=== PATIENT | female | born 1990 | race Caucasian/White ===

== ENCOUNTER 2025-07-19 08:46 | Outpatient (CLI) | payer OTHER, SELFPAY ==
[2025-08-07 14:30] VITALS: BMI 39.1
--- NOTE | 2025-08-07 14:30 | P.SLEEP_ITS ---
Sleep Study - Home Unattended Date of Study: 07/19/25 Ordering Provider: Susana Seay, PA Interpreting Provider: Emily Mcgowan, DO Home Sleep Study Type: Watch PAT Height: 1.75 m Weight: 120.202 kg Body Mass Index: 39.1 Neck Circumference (inches): 16 [place]: 16 Reason for Sleep Study Excessive daytime sleepiness Sleep History The patient is a 34-year-old female that had a sleep study ordered by her [facility] for evaluation of sleep apnea. The patient admits to excessive daytime sleepiness and trouble staying asleep. She denies snoring loudly. She denies having interruptions in breathing while asleep. She denies choking or gasping at night. She denies having trouble breathing on her back. She does have morning headaches. She does have a dry or sore mouth/ throat in the morning. She denies nocturnal heartburn. She denies nocturia. She does have difficulty falling and staying asleep. She does have difficulty returning to sleep if she wakes up throughout the night. She denies any hypnotic or sedative use. She does feel anxious about sleep. He does feel tired or sleepy during the day. She does feel tired in the morning. She does have the urge to fall asleep during the day. She does feel drowsy while driving. She admits to having muscle weakness. She denies sleep paralysis and hypnagogic/ hypnopompic hallucinations. She does dreams during daytime naps. She does clench or grind her teeth. She denies kicking or jerking her legs excessively. She denies having a restless feeling in her legs. She goes to bed at 10:00 p.m. on work days and at 1:00 a.m. on her days off. It takes her 2 hours to fall asleep on work days and 1 hour on her days off. She gets 6 hours of sleep per night. Her sleep is somewhat restorative on her days off. She does take a planned naps in the afternoon lasting 1-2 hours and is restorative. She denies dream enactment behavior. She denies sleep walking. She consumes more than 5 caffeinated beverages per day. She denies tobacco and alcohol use. She exercises 1-2 nights per week. Sleep Procedure The sleep study was completed using [employer] a technically adequate device with seven channels: peripheral arterial tone, actigraphy, body position, snore, respiratory movement, pulse oximetry, sleep staging, and heart rate. Prior to using the device, the patient received verbal and written instructions for its application and was provided with the help desk phone number for additional telephonic instruction with 24-hour availability of qualified personnel to answer questions. The study was scored using CMS guidelines. Sleep Architecture The total recording time is 8 hrs, 41 min. The total sleep time is 5 hrs, 43 min . Sleep latency is 56 minutes. REM latency is 32 minutes. The patient had 18 episodes of waking. Sleep architecture shows 22.9% deep sleep, 54.3% light sleep, and (as % Total Sleep Time) showed NREM (Light 54.3%; Deep 22.9%), and a 22.9% stage REM. The patient spent 58.2% of total sleep time in the supine position. Sleep efficiency was 65.83. Respiratory Analysis The overall AHI (pAHI 4%:) is 5.4. The overall AHI (pAHI 3%:) is 8.2. The central AHI is 0.9. The AHI was 9.1 in NREM and 5.4 in REM sleep. The AHI was 5.4 in Supine and 12.2 in Non-supine sleep. Percent of Lukas Capellan respirations is 0.0. Oximetry Data The oxygen desaturation index (GORDY 4%:) is 3.5. The mean saturation is 94%, and the lowest saturation is 90%. Time spent with saturation < 88% is 0.0 minutes. Snoring Profile Snoring average intensity is 46 dB. The patient snored above 45 decibels for 138.6 minutes, 40.3% of sleep time. Cardiac Profile The average pulse rate is 68 beats per minutes. The lowest pulse rate is 50 bpm. The highest pulse rate reported is 95 bpm. Atrial fibrillation was not detected. Premature beats occur <0.1 per minute. Assessment and Plan Assessment and Plan (1) VERONICA (obstructive sleep apnea): Code(s): G47.33 - Obstructive sleep apnea (adult) (pediatric) Status: Acute Assessment and Plan: The patient had an overall AHI of 5.4 with desaturation down to 90%. This is consistent with mild sleep apnea. Due to the severity of the patient's daytime hypersomnia (ESS of 15/24), she qualifies for treatment. I recommend that the patient be prescribed AutoPAP 5-15 cm H2O, CPAP mask/filters/tubing and heated humidity. A mandibular advancement device is also an acceptable treatment option. This should be used with all episodes of sleep.? Compliance should be reviewed within 31-90 days of starting therapy for usage greater than 4 hours per night greater than 70% of the nights. The patient should be asked about symptoms such as?excessive daytime sleepiness, quality of sleep, decreased nocturia, increased?mental functioning such as memory, mood, and concentration. Data The data obtained during this sleep study is adequate for interpretation. Certification This sleep study has been reviewed by a board certified sleep medicine physician.
== END 2025-07-20 13:47 | disposition home or self-care (01) ==
PROVIDERS: PCP Family Medicine; Visit Provider Physician Assistant
DX: G47.33 Obstructive sleep apnea (adult) (pediatric) (principal)
CPT/HCPCS: 95800

== ENCOUNTER 2025-07-24 10:14 | Outpatient (CLI) | payer OTHER, SELFPAY ==
--- OUTSIDE RECORDS SUMMARY | 2025-07-24 11:57 | XMS_ITS | Clinical Summary ---
Author Organization [place] [id number] [facility] Address [facility] [place] [address] Care Team Providers Care Production Control Coordinator Name Role Phone Luke Hayes MD Primary Care Provider [phone] Judi Walker ACTIVATED SLUDGE ATTENDANT Unavailable [phone] Allergies Active Allergy Reactions Criticality Noted Date Comments Cephalosporins Hives,Other (See comments),Unknown High 03/07/2010 REACTION UNKNOWN Nuts Itching,Other (See comments),Shortness of breath,Anaphylaxis,Hives High 02/09/2019 REACTION UNKNOWN Medications busPIRone (BUSPAR) 15 mg tablet Take 2 tablets (30 mg total) by mouth 2 (two) times a day 022 Active Advair Diskus 250-50 mcg/dose diskus inhaler Inhale 1 puff 2 (two) times a day 022 Active sertraline (ZOLOFT) 100 mg tablet Take 2 tablets (200 mg total) by mouth daily 022 Active cetirizine 10 mg capsule Take 10 mg by mouth daily Active LORazepam (ATIVAN) 0.5 mg tablet Take 1 tablet (0.5 mg total) by mouth as needed 022 Active folic acid (FOLVITE) 800 mcg tablet Take 0.5 tablets (400 mcg total) by mouth daily Active fluticasone propionate (FLONASE) 50 mcg/actuation nasal spray 025 Active rizatriptan ELEVATOR CONDUCTOR (MAXALT-ELEVATOR CONDUCTOR) 5 mg disintegrating tabletIndications :Migraine Take 1 tablet (5 mg total) by mouth once as needed for migraine May repeat in 2 hours if unresolved. Do not exceed 30 mg in 24 hours. 9 tablet 025 2025 Active Ajovy Syringe 225 mg/1.5 mL syringe subcutaneous injection INJECT 225 MG (1 ML) SUBCUTANEOUSLY ONCE MONTHLY 1.5 mL 5 Active Ajovy Syringe 225 mg/1.5 mL syringe subcutaneous injection INJECT 225 MG (1 ML) SUBCUTANEOUSLY ONCE MONTHLY 1.5 mL 5 025 2024 Discontinued Hospital, Clinic, or Other Facility Administered Medication Ordered Dose Route Frequency Start Date End Date Status onabotulinumtoxin A (BOTOX) 200 unit injection 200 UnitsIndications:Intr actable chronic migraine without aura and without status migrainosus 200 Units OTHER Once for Clinic-Administere d Medication 06/20/2025 Active Active Problems Problem Noted Date Diagnosed Date Chronic migraine with aura w ithout status migrainosus, not intractable 06/02/2024 Migraine without aura and wi thout status migrainosus, not intractable 12/03/2023 Antiphospholipid antibody positive 01/21/2023 Overview (01/21/2023): Diagnosis Laboratory criteria: lupus anticoagulant present in plasma on 2 occasions at least 12 weeks apart Clinical criteria: one or more clinical episodes of arterial, venous, or small vessel thrombosis in any tissue/organ and one or more unexplained deaths of a morphologically normal fetus at or beyond he 10th week of gestation, with normal morphology documented by ultrasound or by direct examination of the fetus Counseling Discussed with patient that antiphospholipid syndrome is an autoimmune disorder defined by the presence of characteristic clinical features and specified levels of circulating proteins called antiphospholipid antibodies and that diagnosis requires at least one clinical and laboratory finding. Antiphospholipid antibodies have been associated with a variety of medical problems including arterial thrombosis and venous thrombosis (with risk significantly increased during or in the period-~5-12%), autoimmune thrombosis and loss. In addition to loss, several obstetric complications have been associated with antiphospholipid antibodies, including preeclampsia (5-8x increased risk), intrauterine growth restriction (15-30% in most case series), placental insufficiency and delivery. Recommendations We recommend low-dose aspirin starting at 12 weeks for preeclampsia prophylaxis and possible protective benefit against loss We recommend Deirdre begin Lovenox shortly after conception. She will call our office when she achieves to begin Lovenox. We do not recommend use of IVIG or prednisone used solely for the treatment of APS. The patient should not use estrogen-containing contraceptives, but progesterone- only forms of contraception are appropriate. We recommend delivery at 39 weeks gestation Plan [] ASA starting at 12 weeks [] Lovenox when she has a positive test [] Serial growth scans starting at 28 weeks [] testing starting at 28 weeks [] Delivery at 39 weeks History of cerebral venous sinus thrombosis 12/30 Overview (01/21/2023): Occurred in 2008, thought to be 2/2 OCPs. She has no residual deficits. 2009: had cerebral angiogram: surgeons were unable to clear clots endovascularly. Was on Lovenox and Warfarin for a year. Last saw heme 10/2022: had thrombophlia testing with +lupus anticoagulant x2 (07/2022, 05/2022). No recommendations for anticoagulation outside of but given clot history and APLS, for prophylactic Lovenox in . Please see APLS problem for further details. Asthma 01/21/2023 Overview (01/21/2023): - Severity classification: moderate persistent - Current regimen: Advair BID, Albuterol Discussed that this regimen is safe. Discussed that some asthma Improves and some worsens in . Discussed availability of step-up therapy if needed. Miscarriage 01/21/2023 Overview (01/21/2023): Deirdre has a history of 2 miscarriages in the last year, one at 6 weeks and one at 11 weeks. We discussed that this may be due to APLS. Please see this problem for plan. Depression 01/21/2023 Overview (01/21/2023): We reviewed depression/anxiety and SSRI/SNRI use in . Generally, the risk of worsening depression or anxiety in is dependent on control prior to . Maternal depression has been associated with increased risk of and IUGR/SGA in some studies.Thus, regular follow-up with a mental health provider is recommended throughout her and . The risks of SSRI exposure have been explored by multiple studies, but the results from these studies are conflicting and limited by confounders. We discussed the weak association between SSRIs and defects and the possibility of deferring treatment in the first trimester. We also discussed a potential association between maternal use of SSRIs in late and the risk of persistent pulmonary hypertension of the (PPHN). We reviewed how studies indicated that there may be a small increase in the risk of PPHN among those who use SSRIs in late , however about 99% of women exposed to one of these medications in late will deliver an unaffected by PPHN. We reviewed the risk of abstinence syndrome but emphasized that this syndrome can be easily managed by the pediatricians, and no truck terminal manager effects have ever been demonstrated. We discussed that the absolute risks of continuing SSRIs in are small but present and need to be weighed against the potential maternal benefits. Availability of alternative treatment like psychotherapy should also be taken into consideration. We discussed the management of anxiety/depression during , with an emphasis on optimizing maternal well being as untreated anxiety/depression can have devastating consequences. Zoloft and Buspar, in general, has not been shown to increase risk of teratogenicity, stillbirth/ mortality, or major congenital anomalies. We reviewed that worsening of depression does sometimes occur during , or in the period, and in rare cases can lead to psychosis and/or suicide ideation. Deirdre rarely takes Ativan: we discussed minimizing or removing this exposure in . Encounter for preconception consultation 023 Overview (01/21/2023): Discussed general preconception counseling with the patient. We reviewed all chronic medical conditions (please see individual problems for specific counseling) as well as medications, indications for her medications as well as their safety profile in . We discussed the patient's family history and offered carrier screening. We discussed the importance of folic acid supplementation. We also discussed immunization status and discussed current recommendations for influenza and COVID vaccination in . Plan [x] carrier screening: declines [] folic acid supplementation: will take. Cannot take PNV due to Vitamin A with her IIH. [x] COVID vaccination Multiple thyroid nodules 01/19/2023 Overview (01/21/2023): Had two nodules biopsied recently: they are benign and being monitored. Saw endocrinology on January 19, 2023: recommend repeat ultrasound of thyroid in 1 year Assessment & Plan (01/19/2023 11:36 AM CDT): Benign cytology Plan follow up US in one year Obtain TFT Class 2 obesity due to exces s calories with body mass index (BMI) of 39.0 to 39.9 in adult 01/19/2023 Assessment & Plan (01/21/2023 4:11 PM CDT): BMI: 40 Counseling Women with obesity are at increased risks of spontaneous , stillbirth, macrosomia and congenital anomalies. During the antepartum period they are at increased risk of cardiac dysfunction, proteinuria, sleep apnea, GDM, and preeclampsia. During labor, women with obesity are at a higher risk for delivery, failed trial of labor, endometritis, wound complications, and venous thrombosis. We recommended healthy diet and exercise to Deirdre in this preconception period to optimize the health of the . Would recommend early glucose screening, specialized anatomy ultrasound with serial growth assessment, and testing. Plan when is achieved: [] Early GTT [] Specialized anatomy ultrasound [] Anesthesia consult in third trimester [] surveillance recommendations per APLS Assessment & Plan (01/19/2023 11:37 AM CDT): Patient on Topamax for migraine Discussed diet and exercise Discussed medical therapy for weight loss Will refer to weight management clinic Dermatitis due to ingested food 03/07/2010 IIH (idiopathic intracranial hypertension) 05/01 Overview (01/21/2023): History: Diagnosed around 2010 with lumbar puncture. Doing well until early 2021 when she had worsening headaches and pulsatile tinnitus. Had headache again in 05/2022 with daily vision blurring and had high opening pressure of 36. Neurology team was considering a shunt. Most recently saw neuro optho 08/2022 at [facility] with normal neurooptho exam. Continue current regimen, no plan for surgery Counseling: Idiopathic Intracranial Hypertension (IIH) formerly known as pseudotumor cerebri is a disease that is more common in women and obese patients. Symptoms include headache, visual disturbances, and papilledema, neck/back pain, tinnitus and cranial nerve palsies. This is typically caused by increased intracranial pressure which is thought to be secondary to either an increase in cerebrospinal fluid production or lack of reabsorption. If symptoms develop in , they most commonly develop in the 1st trimester or . If left untreated, permanent vision loss is a risk but the disease is usually self-limited. Treatment options include acetazolamide, high dose steroids, furosemide, torsemide, topiramate, repeated lumbar punctures, shunting procedures, or optic nerve fenestration. Acetazolamide is first-line in non patients and has been safely used in - no risk of miscarriage or teratogenic outcomes have been reported. IIH symptoms tend to improve after delivery. There are no specific risks to a from IIH itself and no obstetric complications maternal or have been reported. Current regimen:Diamox 500mg BID, Topamax 100mg qHS. Acute treatments: Idomethacin and Esgic (fiorcet) Discussed Topamax as a potentially teratogenic medication associated with cleft lip. We discussed that the risks and benefits of Topamax in for symptom control must be weighed. Her symptoms have been improving and she desires to see neurology about potentially down titrating and removing Topamax before . Discussed recommendation to avoid indomethacin in . Plan: [] Monitor symptoms [] Ensure follow up with neurology and neuro-ophthalmology Encounters Date Type Department Care Team Description 04/24/2025 Orders Only [facility] Medicine General Neurology [address] [place] [address] Trish London Intractable chronic migraine without aura and without status migrainosus (Primary Dx) from Last 3 Months Immunizations Immunization Administration Dates Next Due DTP 02/23/1995, 1,04/02/1990,02/19,1989 Hep B, Adolescent or Pediatric 11/14/1999,1998,05/16/1999 HiB 08/09/1993,09/11/1990,07/13/1990 Influenza, Quadrivalent, Spl it, Intramuscular 07/11/2019,06/14/2018 Influenza, Quadrivalent, Spl it, Preservative Free, Intramuscular 07/01/2021,06/04/2020,08/01/2016 Influenza, Trivalent, IM (MDV) 06/11/2017 MMR 02/23/1995,02/25/1991 OPV 02/23/1995, 1,02/19/1990,12/19 OPV, Unspecified 02/23/1995, 1,02/19/1990,12/19 Pneumococcal Polysaccharide PPV23 07/12/2018 Surgical History Surgery Date Site/Laterality Comments APPENDECTOMY 08/31/2005 - 08/30/2006 CHOLECYSTECTOMY 08/31/2016 - 08/30/2017 WISDOM TOOTH EXTRACTION LUMBAR PUNCTURE WO INJECTION , DIAGNOSTIC 05/22/2022 N/A LUMBAR PUNCTURE WO INJECTION , DIAGNOSTIC 01/08/2022 N/A Medical History Medical History Date Comments Anxiety Asthma Bleeding disorder Depression Gastric reflux IIH (idiopathic intracranial hypertension) Antiphospholipid antibody positive Family History Medical History Relation Name Comments Heart disease Father Hypertension Father Heart disease Mother Hypertension Mother Heart disease Paternal Grandfather Hypertension Paternal Grandfather Heart disease Paternal Grandmother Hypertension Paternal Grandmother Stroke Paternal Grandmother Relation Name Status Comments Father Mother Paternal Grandfather Paternal Grandmother Social History Tobacco Use Types Packs/Day Years Used Date Smoking Tobacco: Former Cigarettes 0.3 3 2 013 - 2015 Smokeless Tobacco: Never AUDIT-C Answer Date Recorded Q1: How often do you have a drink containing alc ohol? Never 07/21/2024 Average Number of Drinks Not on file 024 Frequency of Binge Drinking Not on file 07/02 Comments No Sex and Gender Information Value Date Recorded Sex Assigned at Not on file Legal Sex Female 12:36 PM CDT Gender Identity Female 06/23/2022 9:38 AM CDT Sexual Orientation Not on file Occupation Industry Job Start Date Job End Date Currently employed Not on file Not on file Not on fi le Obstetrics History Para Term AB IAB SAB Ectopic Multiple Livin g Live Births 3 1 1 2 1 Date Outcome GA Total Labor Labor/2nd/3rd Weight Sex Type Anes PTL Rozina A1 A5 Name Clin Term AB 5w0d AB 11w0d Last Filed Vital Signs Vital Sign Reading Time Taken Comments Blood Pressure 129/84 06/02/2024 9:55 AM CDT Pulse 87 06/02/2024 9:55 AM CDT Temperature 36.7 C (98 F) 06/02/2024 9:55 AM CDT Respiratory Rate 18 09/19/2022 10:16 AM SOLE PAINTER Oxygen Saturation 98% 06/02/2024 9:55 AM CDT Inhaled Oxygen Concentration - - Weight 118.4 kg (261 lb) 06/02/2024 9:55 AM CDT Height 175.3 cm (5' 9) 06/02/2024 9:55 AM CDT Body Mass Index 38.54 06/02/2024 9:55 AM CDT Plan of Treatment Health Maintenance Due Date Last Done Comments Depression Screening 1989 Hepatitis C Screening 1989 DTaP/Tdap/Td Vaccine (6 - Tdap) 2000 02/23/1995, 06/17/1991, 04/02/1990, Additional history exists Varicella Vaccines (1 of 2 - 13+ 2-dose series) 2002 HPV Vaccines (1 - 3-dose SCD M series) 2016 Pneumococcal vaccine <65 (2 of 2 - PCV) 07/12/2019 07/12/2018 Cervical Cancer Screening 01/20/2024 01/19/2023 Regular Well Visit/Exam 18-64 01/20/2024 01/19/2023 Covid-19 Vaccine (4 - 2024-2 6 season) 2025 08/05/2021, 11/30/2020, 11/02/2020 Influenza Vaccine (#1) 2025 , 06/27/2022, 07/01/2021, Additional history exists Hepatitis B Screening Completed 11/14/1999 , 07/16/1999, 05/16/1999 Procedures Procedure Name Priority Date/Time Associated Diagnosis Comments PAP AND HIGH RISK HPV, REFLEX TO GENOTYPING Routine 01/19/2023 2:54 PM CDT Well woman exam from Last 3 Months or Most Recently Relevant to Health Maintenance Results * Pap and High Risk HPV, reflex to Genotyping (01/19/2023 2:54 PM CDT) CLINICAL INFORMATION: None given [facility] LMP 01/14/23 [facility] Previous Pap ? NORMAL AT OFFICE IN [facility] Prev. Bx NONE GIVEN [facility] SOURCE: Cervix, Endocervix [facility] Pap, specimen adequacy Specimen processed and examined, but unsatisfactory for evaluation due to an insufficient number of squamous cells. [facility] HPV interp Unable to provide interpretation due to unsatisfactory specimen adequacy. [facility] COMMENTS BLOOD PRESENT [facility] Utility Accounts Director PCM, CT(ASCP) CT Screening Location: [place] [address] Administration MICHAEL [place]gado [id number] [facility] Review placement interviewer ABC, CT(ASCP) CT screening location: [place] [address] Administration MICHAEL [place] [address] [facility] Comment [facility] Comment: EXPLANATORY NOTE: The Pap is a screening test for cervical cancer. It is not a diagnostic test and is subject to false negative and false positive results. It is most reliable when a satisfactory sample, regularly obtained, is submitted with relevant clinical findings and history, and when the Pap result is evaluated along with historic and current clinical information. Human papillomavirus DNA, High Risk E6/E7 Not Detected NOT DETECTED [facility] /Tracie wang [place] Comment: Not Detected High Risk HPV types (16,18,31,33,35,39,45,51,52, 56,58,59,66,68) were not detected. Other HPV types which cause anogenital lesions may be present. The significance of the other types of HPV in malignant processes has not been established. Methodology: Real Time PCR Thin prep 01/19/2023 2:54 PM CDT 01/20/2023 12:55 AM CDT Tracey Flanagan NP LAB CYTOLOGY ORDERABLES Fi nal Result [place] [address] Administration MICHAEL Jeter [phone] [facility] [place]ino/[place] [address] [place] [address] from Last 3 Months or Most Recently Relevant to Health Maintenance Insurance [employer] PRF PPO IN [facility] Care Teams Production Control Coordinator Relationship Specialty Start Date End Date Luke Hayes MD [address] [place] [address] PCP - General Family Medicine 06/17/22 Judi Walker NP [address] [place] [address] Nurse Practitioner 06/18/22
[2025-07-26 13:09] LABS: Saccharomyces cerevisiae, IgA 41.2 Units (0.0-24.9); Saccharomyces cerevisiae, IgG 38.1 Units (0.0-24.9)
== END 2025-07-24 10:15 | disposition home or self-care (01) ==
LOC: CHSLAB 10:18
PROVIDERS: PCP Family Medicine; Visit Provider Physician Assistant
DX: R19.8 Other specified symptoms and signs involving the digestive system and abdomen (principal)
CPT/HCPCS: 86037; 86671

== ENCOUNTER 2025-08-02 14:31 | Outpatient (CLI) | payer OTHER, SELFPAY ==
[2025-08-02 15:48] LABS: HIV 1 P24 AG Negative (Negative); HIV 1/2 AB Negative (Negative)
--- OUTSIDE RECORDS SUMMARY | 2025-08-02 15:56 | XMS_ITS | Encounter Summary ---
Author Organization [facility] Address [address] [place] [address] Care Team Providers Care Wood Pole Treater Name Role Phone Luke Hayes MD Primary Care Provider [phone] Encounter Details Date Type Department Care Team (Latest Contact Info) Description 07/08/2022 [employer] Message Enc [facility] [address] [address] Judi Walker, JUNIOR RECRUITER [address] [address] Prednisone Topamax update Social History Tobacco Use Types Packs/Day Years Used Date Smoking Tobacco: Former Smokeless Tobacco: Never Comments:patient is no longe r smoking Alcohol Use Standard Drinks/Week Comments Not Currently 0 (1 standard drink = 0.6 oz pur e alcohol) PHQ-2 Answer Date Recorded PHQ-2 Score - If the patient scores above 3, please move on to questions 3-9 2 07/01/2022 Comments No Sex and Gender Information Value Date Recorded Sex Assigned at Female 07/24/2025 9:22 AM TAX SPECIALIST Legal Sex Female 5:46 PM TAX SPECIALIST Gender Identity Not on file Sexual Orientation Not on file documented as of this encounter Plan of Treatment Not on file documented as of this encounter Visit Diagnoses Not on filedocumented in this encounter Care Teams Wood Pole Treater Relationship Specialty Start Date End Date Luke Hayes MD [address] [place] [address] PCP - General FAMILY PRACTICE 01/15/19 documented as of this encounter
--- OUTSIDE RECORDS SUMMARY | 2025-08-02 15:56 | XMS_ITS | Encounter Summary ---
Author Organization [facility] Address [facility] [place] [address] Care Team Providers Care Receptionist Doctor'S Office Name Role Phone Luke Hayes MD Primary Care Provider [phone] Encounter Details Date Type Department Care Team (Late st Contact Info) Description 10/17/2024 Lang[facility] Patient Accounts [address] [place] [address] [facility] Payment plan - auto pay Social History Tobacco Use Types Packs/Day Years Used Date Smoking Tobacco: Former Smokeless Tobacco: Never Comments:patient is no longe r smoking Alcohol Use Standard Drinks/Week Comments Not Currently 0 (1 standard drink = 0.6 oz pur e alcohol) PHQ-2 Answer Date Recorded Patient Health Questionnaire-2 Score 0 08/11/2022 Comments No Sex and Gender Information Value Date Recorded Sex Assigned at Female 07/24/2025 9:22 AM INSTRUCTIONAL SUPERVISOR Legal Sex Female 5:46 PM INSTRUCTIONAL SUPERVISOR Gender Identity Not on file Sexual Orientation Not on file documented as of this encounter Plan of Treatment Not on file documented as of this encounter Visit Diagnoses Not on filedocumented in this encounter Care Teams Receptionist Doctor'S Office Relationship Specialty Start Date End Date Luke Hayes MD [address] [place] [phone] PCP - General FAMILY PRACTICE 01/15/19 documented as of this encounter
--- OUTSIDE RECORDS SUMMARY | 2025-08-02 15:56 | XMS_ITS | Encounter Summary ---
Author Organization [facility] Address [address] [place] [address] Care Team Providers Care Supplier Specialist Name Role Phone Luke Hayes MD Primary Care Provider [phone] Encounter Details Date Type Department Care Team (Late st Contact Info) Description 01/06/2022 Pre-Procedure Call [facility] Interventional Radiology [address] [place], [place] [id number] Caron Mack RN Social History Tobacco Use Types Packs/Day Years Used Date Smoking Tobacco: Former Smokeless Tobacco: Never Alcohol Use Standard Drinks/Week Comments Not Currently 0 (1 standard drink = 0.6 oz pur e alcohol) Comments No Sex and Gender Information Value Date Recorded Sex Assigned at Female 07/24/2025 9:22 AM WHITE WASHER Legal Sex Female 5:46 PM WHITE WASHER Gender Identity Not on file Sexual Orientation Not on file COVID-19 Exposure Response Date Recorded In the last 10 days, have yo u been in contact with someone who was confirmed or suspected to have Coronavirus/COVID-19? No / Unsure 01/08/2022 7:36 AM CDT documented as of this encounter Plan of Treatment Not on file documented as of this encounter Visit Diagnoses Not on filedocumented in this encounter Care Teams Supplier Specialist Relationship Specialty [place] [address] [place], [place] [address] [id number] PCP - General FAMILY PRACTICE 01/15/19 documented as of this encounter
--- OUTSIDE RECORDS SUMMARY | 2025-08-02 15:56 | XMS_ITS | Clinical Summary ---
Author Organization [facility] Address [address] [place] [address] Care Team Providers Care Community Education Coordinator Name Role Phone Luke Hayes MD Primary Care Provider [phone] Allergies Active Allergy Reactions Criticality Noted Date Comments Acetazolamide Other (see comment) 03/28/2022 Can only use extended release. Otherwise numbness and tingling in limbs Cefprozil Hives,Unknown High 03/07/2010 Cephalosporins Other (see comment) 02/09/2019 REACTION UNKNOWN Gluten Meal Unknown 03/07/2010 Nuts Anaphylaxis,Hives High 02/09/2019 Venlafaxine Rash Low 06/03/2024 Medications ADVAIR DISKUS 250-50 MCG/DOSE inhaler 0 Active EPINEPHrine 0.3 MG/0.3ML injection Inject 0.3 mLs (0.3 mg total) into the muscle as needed for Anaphylaxis. 1 each 0 Active sertraline 100 MG tablet 2 tablets (200 mg total) daily. 2 Active busPIRone (BUSPAR) 15 MG tablet 2 (two) times daily. 2 Active butalbital-aceta minophen-caffein e (ESGIC) 50-325-40 MG tabletIndication s:IIH (idiopathic intracranial hypertension) Take 1 tablet by mouth every 4 (four) hours as needed for Pain. 30 tablet 5 2 Active LORazepam (ATIVAN) 0.5 MG tabletIndication s:Anxiety about health Take 1 tablet prior to the procedure and may repeat after 30 minutes if needed for anxiety. Do not drive while taking this medication. 10 tablet 2 Active indomethacin (INDOCIN) 25 MG capsuleIndicatio ns:IIH (idiopathic intracranial hypertension) Take 1 capsule (25 mg total) by mouth 3 (three) times daily as needed. 90 capsule 11 2 Active topiramate (TOPAMAX) 100 MG tabletIndication s:IIH (idiopathic intracranial hypertension) Take 1 tablet (100 mg total) by mouth nightly at bedtime. 30 tablet 11 2 Active Additional Information Patient taking differently: 50 mgOral Nightly at bedtime, Reported on 06/03/2024 Active Problems Problem Noted Date Diagnosed Date Dermatitis due to ingested food 03/07/2010 Pseudotumor cerebri 05/01/2009 Encounters Date Type Department Care Team Description 07/24/2025 Travel from Last 3 Months Immunizations Immunization Administration Dates Next Due Dtp 02/23/1995,06/17/1991,04/02/1990 ,02/19/1990,1989 MMR 02/23/1995,02/25/1991 Opv 02/23/1995,06/17/1991,02/19/1990 ,1989 Family History Medical History Relation Comments No Known Problems Brother Heart Disease Father Hyperlipidemia Father No Known Problems Maternal Aunt No Known Problems Maternal Grandfather No Known Problems Maternal Grandmother No Known Problems Maternal Uncle Heart Disease Mother Hyperlipidemia Mother Thyroid Disease Mother No Known Problems Other No Known Problems Paternal Aunt No Known Problems Paternal Grandfather No Known Problems Paternal Grandmother No Known Problems Paternal Uncle No Known Problems Sister Relation Status Comments Brother Father Maternal Aunt Maternal Grandfather Maternal Grandmother Maternal Uncle Mother Other Paternal Aunt Paternal Grandfather Paternal Grandmother Paternal Uncle Sister Social History Tobacco Use Types Packs/Day Years Used Date Smoking Tobacco: Former Smokeless Tobacco: Never Tobacco Cessation:Counseling Given: No Comments:patient is no longer smoking Alcohol Use Standard Drinks/Week Comments Not Currently 0 (1 standard drink = 0.6 oz pur e alcohol) PHQ-2 Answer Date Recorded Patient Health Questionnaire-2 Score 0 08/11/2022 Comments No Sex and Gender Information Value Date Recorded Sex Assigned at Female 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 Gender Identity Not on file Sexual Orientation Not on file Last Filed Vital Signs Vital Sign Reading Time Taken Comments Blood Pressure 104/67 06/03/2024 1:50 PM CDT Pulse 80 06/03/2024 9:34 AM CDT Temperature 36.2 C (97.1 F) 06/03/2024 9:34 AM CDT Respiratory Rate 18 06/03/2024 12:00 PM CDT Oxygen Saturation 100% 06/03/2024 1:50 PM CDT Inhaled Oxygen Concentration - - Weight 114.8 kg (253 lb) 06/03/2024 9:34 AM CDT Height 172.7 cm (5' 8) 06/03/2024 9:34 AM CDT Body Mass Index 38.47 06/03/2024 9:34 AM CDT Plan of Treatment Health Maintenance Due Date Last Done Comments Cervical Cancer Screening Pap Smear (Age 30 to 64) Every 3 Years 1989 Annual Physical 1992 Hepatitis C 2007 DTaP, Tdap and Td Vaccines (1 - Tdap) 2008 02/23/1995, 06/17/1991, 04/02/1990, Additional history exists HPV Vaccines (1 - 3-dose SCDM series) 2016 Cervical Cancer Screening Pap with HPV Testing (Age 30 to 64) Every 5 Years 2019 Cervical Cancer Screening with HPV 2019 COVID-19 Vaccine ( season) 2025 06/27/2022, 08/05/2021, 11/30/2020, Additional history exists Influenza Adult (#1) 2025 05/30/2024, 06/27/2022, 07/01/2021, Additional history exists Hepatitis B Vaccines Completed 11/14/1999, 07/16/1999, 05/16/1999 Pneumococcal Vaccine: Pediatrics (0 to 5 Years) and At-Risk Patients (6 to 49 Years) Aged Out 07/12/2018 No longer eligible based on patient's age to complete this topic Hepatitis A Vaccines Aged Out No long er eligible based on patient's age to complete this topic Meningococcal B Vaccine Aged Out No l onger eligible based on patient's age to complete this topic Meningococcal Vaccine Aged Out No alexandra thalia eligible based on patient's age to complete this topic RSV Immunizations Under 20 Months Aged Out No longer eligible based on patient's age to complete this topic Insurance MEDICAID Care Teams Community Education Coordinator Relationship Specialty Start Date End Date Luke Hayes MD [address] [place] [id number] PCP - General FAMILY PRACTICE 01/15/19
--- OUTSIDE RECORDS SUMMARY | 2025-08-02 15:56 | XMS_ITS | Encounter Summary ---
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 Female 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[address] 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
--- OUTSIDE RECORDS SUMMARY | 2025-08-02 15:56 | XMS_ITS | Clinical Summary ---
Author Organization [place] [id number] [facility] Address [facility] [place] [address] Care Team Providers Care Rn Delivery Name Role Phone Luke Hayes MD Primary Care Provider [phone] Judi Walker CLINICAL QUALITY MANAGER Unavailable [phone] Allergies Active Allergy Reactions Criticality Noted [...] 50 mcg/actuation nasal spray 025 Active rizatriptan INSERTER OPERATOR (MAXALT-INSERTER OPERATOR) 5 mg disintegrating tabletIndications :Migraine Take 1 [...] easily managed by the pediatricians, and no predatory animal exterminator effects have ever been demonstrated. We discussed [...] been shown to increase risk of teratogenicity, stillbirth/infant mortality, or major congenital anomalies. We reviewed [...] Most recently saw neuro optho 08/2022 at [facility] with normal neurooptho exam. Continue current regimen, [...] 100mg qHS. 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 NORMAL AT [facility] [place] [facility] Prev. Bx NONE GIVEN [facility] SOURCE: Cervix, Endocervix [facility] Pap, specimen adequacy Specimen processed and examined, but unsatisfactory for evaluation due to an insufficient number of squamous cells. [facility] HPV interp Unable to provide interpretation due to unsatisfactory specimen adequacy. [facility] COMMENTS BLOOD PRESENT [facility] School Guidance Counselor PCM, CT(ASCP) CT Screening Location: [place] [address] [address] [place] [address] [facility] Review debt management counselor ABC, CT(ASCP) CT screening location: [place] [address] [address] [place] [address] [facility] Comment [facility] Comment: EXPLANATORY NOTE: The Pap is [...] Detected NOT DETECTED Medhat Merino /Tracie wang [place] Comment: Not Detected High Risk HPV types (16,18,31,33,35,39,45,51,52, 56,58,59,66,68) were not detected. Other HPV types which cause anogenital lesions may be present. The significance of the other types of HPV in malignant processes has not been established. Methodology: Real Time PCR Thin prep 01/19/2023 2:54 PM CDT 01/20/2023 12:55 AM CDT Tracey Flanagan NP LAB CYTOLOGY ORDERABLES Fi nal Result [place] [address] [place] [id number] [facility] [address] [facility] [phone] from Last 3 Months or Most Recently Relevant to Health Maintenance Insurance [employer] [facility] Care Teams Rn Delivery Relationship Specialty Start Date End Date Luke Hayes MD [address] [place] [address] PCP - General Family Medicine 06/17/22 Judi Walker NP [address] [place] [address] Nurse Practitioner 06/18/22
== END 2025-08-02 14:32 | disposition home or self-care (01) ==
LOC: CHSLAB 14:33
PROVIDERS: PCP Family Medicine; Visit Provider Physician Assistant
DX: Z20.2 Contact with and (suspected) exposure to infections with a predominantly sexual mode of transmission (principal)
CPT/HCPCS: 36415; 86593; 87491; 87591; 87806